=== PATIENT | female | born 1995 | race Caucasian/White ===

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

== ENCOUNTER 2018-02-06 23:23 | Emergency (ER) | END 2018-02-07 03:09 | disposition home or self-care (01) ==

== ENCOUNTER 2019-04-30 19:48 | Emergency (ER) | payer SELFPAY ==
[~2019-04-30] VITALS: Ht 149.9 cm; Wt 48.4 kg
[~2019-04-30 19:48] MED LIST changes: -FAMO-18 PO; +FAMO-96 PO; +HYDR-4011 PO; -HYDR-906 PO; +IBUP-1542 PO; +ONDA4TAB14 PO
[2019-04-30 20:05] VITALS: BP 119/59; PULSE 64; RESP 18; Ht 149.9 cm; Wt 48.4 kg
== END 2019-04-30 21:05 | disposition left against medical advice (07) ==
LOC: FTE 19:48
DX: Z53.21 Procedure and treatment not carried out due to patient leaving prior to being seen by health care provider (principal)

== ENCOUNTER 2019-05-07 18:37 | Emergency (ER) | payer OTHER ==
[~2019-05-07] VITALS: Ht 149.9 cm; Wt 48.2 kg
[2019-05-07 18:53] VITALS: Ht 149.9 cm; Wt 48.2 kg
[2019-05-07] MEDS ORDERED: ONDANSETRON 4 MG INJ IV STA (20:00)
[2019-05-07] MEDS ORDERED: LACTATED RINGER'S 1,000 ML IV STA (20:00)
[2019-05-07] MEDS ORDERED: KETOROLAC 15 MG INJ IV STA (20:00)
[2019-05-07 21:45] VITALS: BP 137/69; PULSE 98; RESP 18
== END 2019-05-07 21:45 | disposition home or self-care (01) ==
LOC: FTE 18:37
DX: K80.20 Calculus of gallbladder without cholecystitis without obstruction (principal); M71.332 Other bursal cyst, left wrist
CPT/HCPCS: 36415; 73110; 76705; 80053; 81001; 81025; 83690; 85025; 85610; 85730; 87086; 96374; 96375; J1885; J2405; J7120; Z7502

== ENCOUNTER 2019-05-08 22:13 | Emergency (ER) | payer OTHER ==
[~2019-05-08] VITALS: Ht 149.9 cm; Wt 47.0 kg
[2019-05-08 22:17] VITALS: Ht 149.9 cm; Wt 47.0 kg
[2019-05-09] MEDS ORDERED: POTASSIUM CHLORIDE (SR) 20 MEQ TAB PO STA (00:40)
[2019-05-09] MEDS ORDERED: MAGNESIUM OXIDE 400 MG TAB PO ONE (01:00)
[2019-05-09 01:35] VITALS: BP 109/72; PULSE 78; RESP 16
== END 2019-05-09 01:44 | disposition home or self-care (01) ==
LOC: E/R 22:13
DX: K62.5 Hemorrhage of anus and rectum (principal); E87.6 Hypokalemia; R19.7 Diarrhea, unspecified
CPT/HCPCS: 80053; 84703; 85025; 85610; 85730; 86850; 86900; 86901; Z7502; Z7610